=== PATIENT | male | born 2000 | race Caucasian/White ===

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

== ENCOUNTER → 2022-08-28 | Outpatient (CLI) | payer BC ==
[~2022-08-28] MED LIST changes: +BENADRYL25 MG PO; +IBU800 MG PO
[2022-08-30 09:07] LABS: HIV AB/P24 AG SCREEN Non Reactive (Non Reactive)
[2022-09-01 07:09] LABS: CHLAMYDIA BY NAA Positive (Negative); GONOCOCCUS BY NAA Negative (Negative); TRICH VAG BY NAA Negative (Negative)
== END | disposition home or self-care (01) ==
LOC: LAB SHORT 13:29
PROVIDERS: Chiropractor
DX: Z72.51 High risk heterosexual behavior (principal)
CPT/HCPCS: 86592; 86695; 86696; 87389; 87491; 87591; 87661